=== PATIENT | male | born 1995 | race Caucasian/White ===

== ENCOUNTER 2025-07-07 08:46 | Outpatient (CLI) | payer SELFPAY | END 2025-07-07 08:47 | disposition home or self-care (01) | LOC: AMB 07-08 14:52 | PROVIDERS: Visit Provider Emergency Medicine | DX: S09.90XA Unspecified injury of head, initial encounter (principal); S89.91XA Unspecified injury of right lower leg, initial encounter; F10.129 Alcohol abuse with intoxication, unspecified; V47.0XXA Car driver injured in collision with fixed or stationary object in nontraffic accident, initial encounter; Y92.410 Unspecified street and highway as the place of occurrence of the external cause | CPT/HCPCS: A0425; A0427 ==